=== PATIENT | male | born 1990 | race Caucasian/White ===

== ENCOUNTER 2021-05-17 01:52 | Emergency (ER) | payer BC, SELFPAY | END 2021-05-17 03:31 | disposition home or self-care (01) | LOC: MADERS 01:52 | DX: S06.0X9A Concussion with loss of consciousness of unspecified duration, initial encounter (principal); F17.220 Nicotine dependence, chewing tobacco, uncomplicated; W50.0XXA Accidental hit or strike by another person, initial encounter | CPT/HCPCS: 70450; 72125 ==